=== PATIENT | female | born 1975 | race Caucasian/White ===

== ENCOUNTER → 2017-08-29 | Outpatient (CLI) | payer BC ==
[~2017-08-29] MED LIST: ADAL40PE PO; CARB-139 PO; ENOX30SY4 SQ; LORA1TAB46 PO; MELO7.5T5 PO; OXYC-306 PO; PRED5TAB PO; TRAM50TA2 PO; WARF10TA PO
== END ==
LOC: STAR 12:13
PROVIDERS: ATTEND Psychiatry & Neurology Neurology
DX: Z51.81 Encounter for therapeutic drug level monitoring (principal)
CPT/HCPCS: 93005

== ENCOUNTER 2020-08-07 09:26 | Outpatient (CLI) | payer BC, MEDICARE ==
[~2020-08-07 09:26] MED LIST changes: +ALPR1TAB2 PO; -OXYC-306 PO; +OXYC1TAB16 PO
[2020-08-07] MEDS ORDERED: GADOTERATE 10 MMOL/20ML SYR ONE (10:38)
[2020-10-18] MEDS ORDERED: CYAN-27 PO (13:15)
[2020-10-18] MEDS ORDERED: GABA600T7 PO (13:15)
[2020-10-18] MEDS ORDERED: ABAT125S INJ (13:15)
[2020-10-18] MEDS ORDERED: CARB100C8 PO (13:15)
[2020-10-18] MEDS ORDERED: AMIT50TA PO (13:15)
[2020-10-18] MEDS ORDERED: CHOL10003 PO (13:15)
[2020-10-18] MEDS ORDERED: BIOT25005 PO (13:15)
[2020-10-18] MEDS ORDERED: UBID100C24 PO (13:15)
[2020-10-18] MEDS ORDERED: ESCI20TA10 PO (13:15)
[2020-10-18] MEDS ORDERED: MAGN500C9 PO (13:15)
[2020-10-18] MEDS ORDERED: OXYB5TAB10 PO (13:15)
== END 2020-08-07 23:59 | disposition home or self-care (01) ==
LOC: RAD 09:26
PROVIDERS: ATTEND Psychiatry & Neurology Neurology
DX: G35 Multiple sclerosis (principal)
CPT/HCPCS: 70553; A9575

== ENCOUNTER → 2020-10-18 | Outpatient (CLI) | payer MEDICARE ==
[~2020-10-18] MED LIST changes: +ABAT125S INJ; +AMIT50TA PO; +BIOT25005 PO; +CARB100C8 PO; +CHOL10003 PO; +CYAN-27 PO; +ESCI20TA10 PO; +GABA600T7 PO; +MAGN500C9 PO; +OXYB5TAB10 PO; -OXYC1TAB16 PO; +OXYC1TAB17 PO; +UBID100C24 PO
== END | disposition home or self-care (01) ==
LOC: STAR 09:53
PROVIDERS: ATTEND Internal Medicine
DX: Z20.822 Contact with and (suspected) exposure to COVID-19 (principal); Z12.11 Encounter for screening for malignant neoplasm of colon; R11.2 Nausea with vomiting, unspecified; K92.1 Melena
CPT/HCPCS: U0003; U0005

== ENCOUNTER 2020-10-24 08:13 | Day surgery (SDC) | payer MEDICARE ==
[~2020-10-24] VITALS: Ht 177.8 cm; Wt 102.1 kg
[2020-10-24] MEDS ORDERED: PROPOFOL 50 ML ONE (08:39)
[2020-10-24] MEDS ORDERED: MIDAZOLAM 1 MG/ML, 2ML ONE (08:39)
[2020-10-24 08:49] VITALS: BP 148/81
[2020-10-24] MEDS ORDERED: CHLORHEXIDINE 15 ML UDC ONE (08:59)
[2020-10-24] MEDS ORDERED: LACTATED RINGERS 1,000 ML IV SCH (09:00)
[2020-10-24] MEDS ORDERED: CHLORHEXIDINE 15 ML UDC PO ONE (09:00)
[2020-10-24] MEDS ORDERED: ONDANSETRON 2MG/ML, 2ML ONE (10:22)
[2020-10-24] MEDS ORDERED: ONDANSETRON 2MG/ML, 2ML IVPush PRN (11:00)
== END 2020-10-24 11:35 | disposition home or self-care (01) ==
LOC: OUT 08:13
PROVIDERS: ATTEND Internal Medicine Geriatric Medicine
DX: K92.1 Melena (principal); R11.2 Nausea with vomiting, unspecified; K64.0 First degree hemorrhoids; K29.50 Unspecified chronic gastritis without bleeding; R63.5 Abnormal weight gain; M06.9 Rheumatoid arthritis, unspecified; G35 Multiple sclerosis; F12.90 Cannabis use, unspecified, uncomplicated; Z91.040 Latex allergy status; Z72.89 Other problems related to lifestyle; Z79.899 Other long term (current) drug therapy; Z90.710 Acquired absence of both cervix and uterus
CPT/HCPCS: 43239; 45380; 88305; J2250; J2405; J2704; J7120